=== PATIENT | female | born 1990 | race Caucasian/White ===

== ENCOUNTER → 2021-12-03 | Outpatient (CLI) | payer OTHER | LOC: HEART CORB 09:00 | DX: I49.3 Ventricular premature depolarization (principal); R00.2 Palpitations; R53.83 Other fatigue | CPT/HCPCS: 93306 ==

== ENCOUNTER → 2022-01-04 | Outpatient (CLI) | payer OTHER | LOC: HEART CORB 12:51 | DX: I49.3 Ventricular premature depolarization (principal) ==